=== PATIENT | female | born 1950 | race Two or more races ===

== ENCOUNTER → 2019-01-04 | Day surgery (SDC) | payer OTHER ==
--- NOTE | 2019-01-05 16:33 | PATH ---
Cytology Non-Gynecological Report Patient Name: JESS VELIZ [facility]. Rec. #: [id number] /Age/Gender: 1950 (Age: 68) / F Account: [id number] Location: RADIOLOGY INTER Taken: 01/04/2019 Received: 01/04/2019 Reported: 01/05/2019 Physicians: Ancelmo Dougherty M.D. Specimen(s) Received LEFT THYROID FNA Clinical History Thyroid left lobe nodule Final Diagnosis THYROID, LEFT LOBE, FINE NEEDLE ASPIRATION: SATISFACTORY FOR EVALUATION. [place] CLASS II: BENIGN BENIGN SMALL FOLLICULAR CELLS AND COLLOID PRESENT. Electronically Signed Tomas Reyes M.D. Gross Description Received are eight direct smears, four of which are air-dried and Diff-Quik stained, and four of which are alcohol fixed and Pap stained. Also received is 20 ml of bloody formalin from which one cellblock is prepared.
== END | disposition home or self-care (01) ==
LOC: JRADIR 09:39
PROVIDERS: ATTEND Internal Medicine Endocrinology, Diabetes & Metabolism
PROC: 0G9K3ZX Drainage of Thyroid Gland, Percutaneous Approach, Diagnostic (ICD-10-PCS; principal; 2019-01-04)
DX: E04.1 Nontoxic single thyroid nodule (principal)
CPT/HCPCS: 76942; 88173; 88305-TC